=== PATIENT | male | born 2000 | race African-American/Black ===

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

== ENCOUNTER → 2019-12-02 | Outpatient (CLI) | payer SELFPAY | LOC: M LABSMTC 11:43 | PROVIDERS: ATTEND Pediatrics | DX: Z20.828 Contact with and (suspected) exposure to other viral communicable diseases (principal) ==

== ENCOUNTER → 2020-01-11 | Outpatient (CLI) | payer SELFPAY | LOC: M LABSMTC 12:54 | PROVIDERS: ATTEND Pediatrics | DX: Z20.828 Contact with and (suspected) exposure to other viral communicable diseases (principal) ==

== ENCOUNTER 2021-06-24 14:12 | Emergency (ER) | payer SELFPAY ==
[~2021-06-24] VITALS: Ht 185.4 cm; Wt 82.4 kg
[2021-06-24 14:13] VITALS: BP 148/74
[2021-06-24] MEDS ORDERED: KETOROLAC 30 MG/ML 1ML VIAL IV ONE (16:30)
[2021-06-24 16:43] LABS: BASO % 0.4 % (0.0-1.0); EOS % 0.7 % (0.0-3.0); HEMATOCRIT 44.6 % (42.0-52.0); HEMOGLOBIN 15.2 g/dl (13.5-17.5); LYMPH # 1.7 10^3/uL (1.5-5.0); MEAN CORPUSCULAR HEMOGLOBIN 31.3 pg (27.0-33.0); MEAN CORPUSCULAR HGB CONC 34.1 g/dl (32.0-36.5); MEAN CORPUSCULAR VOLUME 91.8 fl (80.0-96.0); MONO # 0.4 10^3/uL (0.0-0.8); MONO % 6.9 % (2.0-8.0); NEUTROPHILS # 3.2 10^3/uL (1.5-8.5); NEUTROPHILS % 59.8 % (36.0-66.0); PLATELET COUNT, AUTOMATED 225 10^3/uL (150-450); RED BLOOD COUNT 4.86 10^6/uL (4.30-6.10); WHITE BLOOD COUNT 5.4 10^3/uL (4.0-10.0)
[2021-06-24 17:08] LABS: BLOOD UREA NITROGEN 14 MG/DL (7-18); CARBON DIOXIDE LEVEL 27 MEQ/L (21-32); CHLORIDE LEVEL 109 MEQ/L (98-107); GLOMERULAR FILTRATION RATE > 60.0 (>60); GLUCOSE, FASTING 82 MG/DL (70-100); POTASSIUM SERUM 4.1 MEQ/L (3.5-5.1); SODIUM LEVEL 141 MEQ/L (136-145)
[2021-06-24] MEDS ORDERED: ONDANSETRON 4MG/2ML VIAL IV ONE (17:20)
[2021-06-24] MEDS ORDERED: ISOVUE-370 76% 100ML VIAL As Ordered ONE (17:21)
[2021-06-24] MEDS ORDERED: NAPR-837 PO (18:40)
== END 2021-06-24 19:02 | disposition home or self-care (01) ==
LOC: M ED 14:12
DX: S39.011A Strain of muscle, fascia and tendon of abdomen, initial encounter (principal); R10.9 Unspecified abdominal pain; Z91.013 Allergy to seafood; Y92.9 Unspecified place or not applicable; Y93.9 Activity, unspecified; Y99.9 Unspecified external cause status
CPT/HCPCS: 74021; 74177; 80048; 85025; 96374; 96375; 99283; J1885; J2405; Q9967

== ENCOUNTER 2024-04-10 23:20 | Inpatient (IN) | payer OTHER, SELFPAY ==
[~2024-04-10] VITALS: Ht 185.4 cm; Wt 81.2 kg
[~2024-04-10 23:20] MED LIST: NAPR-837 PO
[2024-04-11 00:32] LABS: HEMATOCRIT 41.7 % (42.0-52.0); HEMOGLOBIN 14.4 g/dl (13.5-17.5); MEAN CORPUSCULAR HEMOGLOBIN 31.5 pg (27.0-33.0); MEAN CORPUSCULAR HGB CONC 34.5 g/dl (32.0-36.5); MEAN CORPUSCULAR VOLUME 91.2 fl (80.0-96.0); PLATELET COUNT, AUTOMATED 218 10^3/uL (150-450); RED BLOOD COUNT 4.57 10^6/uL (4.30-6.10); WHITE BLOOD COUNT 6.1 10^3/uL (4.0-10.0)
[2024-04-11 00:37] LABS: AMPHETAMINES LEVEL URINE NEGATIVE (NEGATIVE); BARBITURATES URINE NEGATIVE (NEGATIVE); BENZODIAZEPINES URINE NEGATIVE (NEGATIVE); COCAINE METABOLITE URINE NEGATIVE (NEGATIVE); METHADONE URINE NEGATIVE (NEGATIVE); OPIATES URINE NEGATIVE (NEGATIVE); PHENCYCLIDINE URINE NEGATIVE (NEGATIVE)
[2024-04-11 00:38] LABS: CANNABINOIDS URINE POSITIVE (NEGATIVE)
[2024-04-11 00:52] LABS: ETHYL ALCOHOL (ETHANOL) < 0.003 % (0.000-0.010)
[2024-04-11 00:54] LABS: ALBUMIN 4.2 G/DL (3.2-5.2); ALKALINE PHOSPHATASE 70 U/L (40-129); ALT/SGPT 24 U/L (7.0-40); AST/SGOT 23 U/L (<34); BILIRUBIN,DIRECT 0.3 MG/DL (<0.4); BLOOD UREA NITROGEN 18 MG/DL (9-23); CALCIUM LEVEL 9.5 MG/DL (8.5-10.1); CARBON DIOXIDE LEVEL 27 MMOL/L (20-31); CHLORIDE LEVEL 106 MMOL/L (98-107); GLOMERULAR FILTRATION RATE > 60.0 (>60); GLUCOSE, FASTING 92 MG/DL (60-100); SALICYLATE LEVEL < 3.0 MG/DL (<30); SODIUM LEVEL 142 MMOL/L (136-145); TOTAL PROTEIN 7.5 G/DL (5.7-8.2)
[2024-04-11 00:56] LABS: THYROID STIMULATING HORMONE 2.259 uIU/ML (0.55-4.78)
[2024-04-11] MEDS ORDERED: MOM 30ML SUSPENSION UDC PO PRN (01:20)
[2024-04-11] MEDS ORDERED: ACETAMINOPHEN 325 MG TAB PO PRN (01:20)
[2024-04-11] MEDS ORDERED: MAALOX 30 ML SUSP *UDC PO PRN (01:20)
[2024-04-11] MEDS ORDERED: IBUPROFEN 400MG TAB PO PRN (01:20)
[2024-04-11] MEDS ORDERED: HOME MED LIST COMPLETE! XX SCH (02:15)
[2024-04-11] MEDS: GABAPENTIN 100 MG CAP PO SCH (10:07)
[2024-04-11] MEDS: RISPERIDONE 1 MG TAB PO SCH (10:07)
[2024-04-11 15:38] VITALS: BP 138/80; TEMP 98.5; O2SAT 100
[2024-04-11] MEDS: diphenhydrAMINE 25MG CAP PO PRN (20:28)
[2024-04-12 06:36] VITALS: BP 149/96; TEMP 97.8; O2SAT 100
[2024-04-12 15:11] VITALS: BP 144/69; TEMP 97.2; O2SAT 100
[2024-04-13 06:34] VITALS: BP 142/81; TEMP 97.2; O2SAT 100
[2024-04-13 15:49] VITALS: BP 160/72; TEMP 98.2; O2SAT 99
[2024-04-13] MEDS: DIVALPROEX 500MG *ER* TAB PO SCH (20:14)
[2024-04-14 06:39] VITALS: BP 110/81; TEMP 97.2; O2SAT 100
[2024-04-14 15:17] VITALS: BP 145/69; TEMP 97.5; O2SAT 100
[2024-04-15 06:28] VITALS: BP 110/63; TEMP 97.1; O2SAT 100
[2024-04-15] MEDS ORDERED: PILL CUTTER 1 EACH XX PRN (12:35)
[2024-04-15 16:24] VITALS: BP 141/69; TEMP 98.2; O2SAT 100
[2024-04-15] MEDS: RISPERIDONE 1 MG TAB PO SCH (20:11)
[2024-04-16 06:12] VITALS: BP 139/75; TEMP 97.1; O2SAT 98
[2024-04-16 15:25] VITALS: BP 142/74; TEMP 98.1; O2SAT 99
[2024-04-16] MEDS: traZODone 50 MG TAB PO PRN (20:09)
[2024-04-17] MEDS ORDERED: GABA-1171 PO (05:38)
[2024-04-17] MEDS ORDERED: RISP1TAB42 PO (05:39)
[2024-04-17] MEDS ORDERED: TRAZ-252 PO (05:39)
[2024-04-17] MEDS ORDERED: RISP2TAB32 PO (05:39)
[2024-04-17] MEDS ORDERED: HYDR-3363 PO (05:39)
[2024-04-17 06:46] VITALS: BP 130/73; TEMP 97.3; O2SAT 99
[2024-04-17] MEDS: RISPERIDONE 1 MG TAB PO SCH (08:16)
[2024-04-17] MEDS ORDERED: risperiDONE 2 MG TAB PO SCH (21:00)
== END 2024-04-17 11:12 | disposition home or self-care (01) | DRG 750 ==
LOC: M ED 23:20 → M ED INP 04-11 00:16 → M PSY 04-11 05:50
PROVIDERS: ADMIT Psychiatry & Neurology Neurology; ATTEND Internal Medicine
DX: F25.0 Schizoaffective disorder, bipolar type (principal); F41.9 Anxiety disorder, unspecified; Z63.8 Other specified problems related to primary support group; Z56.0 Unemployment, unspecified; Z63.0 Problems in relationship with spouse or partner; Z62.810 Personal history of physical and sexual abuse in childhood; F17.200 Nicotine dependence, unspecified, uncomplicated

== ENCOUNTER 2024-04-22 09:37 | Emergency (ER) | payer OTHER ==
[~2024-04-22 09:37] MED LIST changes: +GABA-1171 PO; +HYDR-3363 PO; +RISP1TAB42 PO; +RISP2TAB32 PO; +TRAZ-252 PO
[2024-04-22] MEDS: OLANZapine ORAL DISINTEGRATING TAB 5MG PO PRN (10:46)
[2024-04-22 11:27] LABS: PHENCYCLIDINE URINE NEGATIVE (NEGATIVE)
[2024-04-22 11:28] LABS: AMPHETAMINES LEVEL URINE NEGATIVE (NEGATIVE); BARBITURATES URINE NEGATIVE (NEGATIVE); BENZODIAZEPINES URINE NEGATIVE (NEGATIVE); COCAINE METABOLITE URINE NEGATIVE (NEGATIVE); METHADONE URINE NEGATIVE (NEGATIVE); OPIATES URINE NEGATIVE (NEGATIVE)
[2024-04-22 11:29] LABS: CANNABINOIDS URINE POSITIVE (NEGATIVE)
[2024-04-22 11:42] LABS: HEMOGLOBIN 16.3 g/dl (13.5-17.5); MEAN CORPUSCULAR HEMOGLOBIN 30.5 pg (27.0-33.0); MEAN CORPUSCULAR HGB CONC 33.3 g/dl (32.0-36.5); MEAN CORPUSCULAR VOLUME 91.8 fl (80.0-96.0); PLATELET COUNT, AUTOMATED 214 10^3/uL (150-450); RED BLOOD COUNT 5.34 10^6/uL (4.30-6.10); WHITE BLOOD COUNT 5.8 10^3/uL (4.0-10.0)
[2024-04-22 12:12] LABS: ETHYL ALCOHOL (ETHANOL) < 0.003 % (0.000-0.010)
[2024-04-22 12:13] LABS: ALBUMIN 4.6 G/DL (3.2-5.2); ALKALINE PHOSPHATASE 73 U/L (40-129); ALT/SGPT 26 U/L (7.0-40); AST/SGOT 17 U/L (<34); BILIRUBIN,DIRECT 0.4 MG/DL (<0.4); BILIRUBIN,TOTAL 1.2 MG/DL (0.3-1.2); BLOOD UREA NITROGEN 13 MG/DL (9-23); CALCIUM LEVEL 10.1 MG/DL (8.5-10.1); CARBON DIOXIDE LEVEL 29 MMOL/L (20-31); CHLORIDE LEVEL 105 MMOL/L (98-107); CREATININE FOR GFR 1.05 MG/DL (0.70-1.30); GLOMERULAR FILTRATION RATE > 60.0 (>60); GLUCOSE, FASTING 97 MG/DL (60-100); POTASSIUM SERUM 4.1 MMOL/L (3.5-5.1); SALICYLATE LEVEL < 3.0 MG/DL (<30); SODIUM LEVEL 143 MMOL/L (136-145); THYROID STIMULATING HORMONE 2.732 uIU/ML (0.55-4.78); TOTAL PROTEIN 8.4 G/DL (5.7-8.2)
[2024-04-22] MEDS ORDERED: RISP-105 PO (12:54)
[2024-04-22] MEDS ORDERED: TRAZ-186 PO (12:54)
[2024-04-22] MEDS ORDERED: HYDR-3363 PO (12:54)
[2024-04-22] MEDS ORDERED: GABA-1171 PO (12:54)
[2024-04-22] MEDS ORDERED: RISP1TAB42 PO (12:54)
[2024-04-22] MEDS: risperiDONE 2 MG TAB PO ONE (13:03)
[2024-04-22 13:09] VITALS: BP 131/73; TEMP 98; O2SAT 98
== END 2024-04-22 13:17 | disposition home or self-care (01) ==
LOC: M ED 09:37
DX: F25.9 Schizoaffective disorder, unspecified (principal); F31.9 Bipolar disorder, unspecified; Z91.013 Allergy to seafood; Z91.041 Radiographic dye allergy status; Z79.899 Other long term (current) drug therapy

== ENCOUNTER 2024-05-03 07:43 | Emergency (ER) | payer OTHER ==
[~2024-05-03] VITALS: Ht 182.9 cm; Wt 85.2 kg
[~2024-05-03 07:43] MED LIST changes: +RISP-105 PO; +TRAZ-186 PO
[2024-05-03 07:46] VITALS: BP 153/74; TEMP 98.1; O2SAT 98
[2024-05-03] MEDS ORDERED: GABA-284 PO (07:58)
[2024-05-03 09:07] LABS: HEMATOCRIT 42.4 % (42.0-52.0); HEMOGLOBIN 14.2 g/dl (13.5-17.5); MEAN CORPUSCULAR HEMOGLOBIN 31.5 pg (27.0-33.0); MEAN CORPUSCULAR HGB CONC 33.5 g/dl (32.0-36.5); PLATELET COUNT, AUTOMATED 191 10^3/uL (150-450); RED BLOOD COUNT 4.51 10^6/uL (4.30-6.10); WHITE BLOOD COUNT 5.3 10^3/uL (4.0-10.0)
[2024-05-03 09:30] LABS: ETHYL ALCOHOL (ETHANOL) < 0.003 % (0.000-0.010)
[2024-05-03 09:32] LABS: ALBUMIN 3.9 G/DL (3.2-5.2); ALKALINE PHOSPHATASE 59 U/L (40-129); ALT/SGPT 30 U/L (7.0-40); AST/SGOT 29 U/L (<34); BILIRUBIN,DIRECT 0.2 MG/DL (<0.4); BILIRUBIN,TOTAL 0.7 MG/DL (0.3-1.2); BLOOD UREA NITROGEN 11 MG/DL (9-23); CALCIUM LEVEL 9.6 MG/DL (8.5-10.1); CARBON DIOXIDE LEVEL 29 MMOL/L (20-31); CHLORIDE LEVEL 104 MMOL/L (98-107); CREATININE FOR GFR 1.05 MG/DL (0.70-1.30); GLOMERULAR FILTRATION RATE > 60.0 (>60); GLUCOSE, FASTING 89 MG/DL (60-100); SALICYLATE LEVEL < 3.0 MG/DL (<30); SODIUM LEVEL 142 MMOL/L (136-145); TOTAL PROTEIN 7.2 G/DL (5.7-8.2)
[2024-05-03 09:35] LABS: THYROID STIMULATING HORMONE 2.864 uIU/ML (0.55-4.78)
[2024-05-03 09:45] LABS: AMPHETAMINES LEVEL URINE NEGATIVE (NEGATIVE); BARBITURATES URINE NEGATIVE (NEGATIVE); BENZODIAZEPINES URINE NEGATIVE (NEGATIVE); COCAINE METABOLITE URINE NEGATIVE (NEGATIVE); METHADONE URINE NEGATIVE (NEGATIVE); OPIATES URINE NEGATIVE (NEGATIVE); PHENCYCLIDINE URINE NEGATIVE (NEGATIVE)
[2024-05-03 09:47] LABS: CANNABINOIDS URINE POSITIVE (NEGATIVE)
[2024-05-03] MEDS ORDERED: RISP2TAB32 PO (11:31)
[2024-05-03] MEDS ORDERED: RISP1TAB42 PO (11:31)
[2024-05-03] MEDS ORDERED: GABA-1171 PO (11:31)
[2024-05-03] MEDS ORDERED: TRAZ-252 PO (11:31)
[2024-05-03] MEDS ORDERED: HOME MED LIST COMPLETE! XX SCH (11:35)
== END 2024-05-03 15:29 | disposition home or self-care (01) ==
LOC: M ED 07:43
DX: F43.0 Acute stress reaction (principal); F43.20 Adjustment disorder, unspecified; F43.10 Post-traumatic stress disorder, unspecified; F12.10 Cannabis abuse, uncomplicated; Z87.891 Personal history of nicotine dependence; Z91.013 Allergy to seafood; Z91.041 Radiographic dye allergy status; Z79.899 Other long term (current) drug therapy

== ENCOUNTER 2024-08-13 18:55 | Emergency (ER) | payer MEDICAID, OTHER, SELFPAY ==
[~2024-08-13] VITALS: Ht 188 cm; Wt 76.5 kg
[~2024-08-13 18:55] MED LIST changes: +GABA-284 PO; +IBUP-1022 PO
[2024-08-13] MEDS: MORPHINE 4 MG/ML 1 ML VIAL IV ONE (20:22)
[2024-08-13] MEDS: ONDANSETRON 4MG 2ML VIAL IV ONE (20:23)
[2024-08-13] MEDS: MIDAZOLAM INJ 2 MG/2 ML VIAL IV STA (20:41)
[2024-08-13 22:00] VITALS: BP 115/74; TEMP 97.3; O2SAT 98
== END 2024-08-13 22:23 | disposition home or self-care (01) ==
LOC: M ED 18:55
DX: S43.014A Anterior dislocation of right humerus, initial encounter (principal); Y92.9 Unspecified place or not applicable; Y93.9 Activity, unspecified; Y99.9 Unspecified external cause status; F32.A Depression, unspecified; Z91.041 Radiographic dye allergy status; Z91.013 Allergy to seafood; Z79.1 Long term (current) use of non-steroidal anti-inflammatories (NSAID); Z79.899 Other long term (current) drug therapy
CPT/HCPCS: 23650; 73020; 73030; 96374; 96375; 96376; 99284; J2250; J2405; J3360

== ENCOUNTER → 2024-11-30 | Outpatient (REF) ==
[~2024-11-30] MED LIST changes: -IBUP-1022 PO; +IBUP600T42 PO
== END ==
LOC: M LAB 10:36
PROVIDERS: ATTEND Family Medicine
DX: Z02.89 Encounter for other administrative examinations (principal)